=== PATIENT | female | born 1995 | race Caucasian/White ===

== ENCOUNTER 2016-11-10 10:24 | Emergency (ER) | payer MEDICAID, SELFPAY ==
[2016-11-10 10:25] VITALS: BP 137/79
[2016-11-10] MEDS ORDERED: HYDR-4274 PO (10:42)
[2016-11-10] MEDS ORDERED: TEST200I14 (10:42)
== END 2016-11-10 13:16 | disposition left against medical advice (07) ==
LOC: M ED 12:30
DX: S59.919A Unspecified injury of unspecified forearm, initial encounter (principal); Z53.21 Procedure and treatment not carried out due to patient leaving prior to being seen by health care provider